=== PATIENT | male | born 1980 | race Caucasian/White ===

== ENCOUNTER 2021-10-20 17:22 | Emergency (ER) | payer MEDICAID ==
[~2021-10-20] VITALS: Ht 170.2 cm; Wt 90.7 kg
[2021-10-20 17:54] VITALS: BP_SYST 107
--- NOTE | 2021-10-20 17:54 | NUR ---
Patient to ER bed Tent to gown for evaluation. Side rails up.
--- NOTE | 2021-10-20 18:00 | NUR ---
Pt brought by self, A&Ox4, pt presents to ER with sore throat and congestion, afebrile, skin pink and warm, cap refill <3.
--- NOTE | 2021-10-20 18:03 | NUR ---
Covid and strep swab sent to the lab
--- NOTE | 2021-10-20 18:09 | NUR ---
STREP AND COVID SPECIMEN SENT TO LAB 17:58.
--- NOTE | 2021-10-20 20:09 | NUR ---
Pt moved to [facility] in main ER.
--- NOTE | 2021-10-20 20:40 | NUR ---
DR. PITTS AT BEDSIDE.
[2021-10-20] MEDS ORDERED: BENZOCAINE 20% 0.5mL UD SPRAY MM ONE (20:45)
[2021-10-20] MEDS ORDERED: FLUT16SP16 NS (20:45)
[2021-10-20] MEDS ORDERED: DEXAMETHASONE SOD PHOSPHATE 10 MG/ML VIAL PO ONE (20:45)
[2021-10-20] MEDS ORDERED: PSEU30TA36 PO (20:45)
[2021-10-20] MEDS ORDERED: BENZ1LOZ73 PO (20:45)
--- NOTE | 2021-10-20 20:55 | NUR ---
Patient given written and verbal discharge instructions and verbalizes understanding. ER MD discussed with patient the results and treatment provided. Patient in stable condition. ID arm band removed. IV catheter removed intact and dressing applied, no active bleeding. Rx of N/A given. Patient educated on pain management and to follow up with PMD. Pain Scale . Opportunity for questions provided and answered. Medication side effect fact sheet provided.
[2021-10-20 20:58] VITALS: BP_SYST 115
== END 2021-10-20 20:55 | disposition home or self-care (01) ==
LOC: SED 17:22
DX: J06.9 Acute upper respiratory infection, unspecified (principal); R06.6 Hiccough; Z79.899 Other long term (current) drug therapy; Z20.822 Contact with and (suspected) exposure to COVID-19
CPT/HCPCS: 99283; 87426; 86403; 36415; 87081; J1100